=== PATIENT | female | born 1995 | race African-American/Black ===

== ENCOUNTER 2021-11-27 20:52 | Emergency (ER) | payer BC, OTHER ==
[~2021-11-27] VITALS: Ht 167.6 cm; Wt 61.0 kg
[2021-11-27 22:03] LABS: BASOPHILS % 0.8 % (0.0-2.0); HEMATOCRIT. 33.5 % (36.0-48.0); HEMOGLOBIN. 11.5 g/dL (12.0-16.0); MEAN CORPUSCULAR HEMOGLOBIN 31.9 pg (28.0-32.0); MEAN PLATELET VOLUME 8.8 fl (7.4-10.4); MONOCYTES % 6.9 % (2.0-8.0); NEUTROPHILS % 64.3 % (40.0-76.0); PLATELET 182 x1000/uL (130-400); RED CELL DISTRIBUTION WIDTH 12.8 % (11.6-14.6)
[2021-11-27 22:11] LABS: CHLORIDE 106 mEq/L (98-107)
[2021-11-27 22:33] LABS: B-HCG QUANTITATIVE 4006 mIU/mL (<3)
[2021-11-27] MEDS: ACETAMINOPHEN 325MG TABLET PO ONE (22:50)
[2021-11-27] MEDS ORDERED: ACET-2708 MT (23:07)
[2021-11-27 23:50] VITALS: BP 117/75
== END 2021-11-28 00:05 | disposition home or self-care (01) ==
LOC: ER 20:52
DX: O03.9 Complete or unspecified spontaneous abortion without complication (principal); O46.91 Antepartum hemorrhage, unspecified, first trimester; Z3A.08 8 weeks gestation of pregnancy
CPT/HCPCS: 36415; 76801; 80053; 84702; 85025; 86850; 86900; 99284